=== PATIENT | female | born 1950 | race Caucasian/White ===

== ENCOUNTER 2016-10-12 13:14 | Outpatient (CLI) | payer OTHER ==
--- NOTE | 2016-10-12 14:38 | DIAGNOSTIC IMAGING REPORT ---
PROCEDURE: CT THORAX ABD PELVIS W/CONT INDICATION: COLON CA TECHNIQUE: 100 ml of Isovue 300 injected intravenously and axial images were obtained of the entire thorax, abdomen, and pelvis with sagittal and coronal reformations. COMPARISON: None. FINDINGS: THORAX: 4 mm right upper lobe (image 10), 3 mm right middle lobe (image 29), 4 mm left upper lobe nodule (image 7), 2 mm left upper lobe nodule (image 8), 3 mm left upper lobe nodule (image 27) and 3 mm left lower lobe nodules (image 34). Normal airways. No adenopathy or effusion. Minor atherosclerosis of the aorta and the coronaries. Heart size is normal. Right-sided Port-A-Cath in place. No suspicious osseous lesions.. ABDOMEN: 6.4 x 5.1 cm inhomogeneous left hepatic lobe and 4.5 x 3.9 cm inferior right hepatic lobe masses demonstrating some calcifications. There are three additional subcentimeter liver masses which are indeterminate. The gallbladder, pancreas, spleen, adrenal glands and kidneys are unremarkable. There is a 2 cm periumbilical hernia containing a loop of small bowel without incarceration or obstruction. PELVIS: There is no pelvic mass, inflammatory changes or free fluid. There is mild circumferential urinary bladder wall thickening. Normal appendix. IMPRESSION: 1. Several small pulmonary nodules and 2 large hepatic masses, most consistent with metastases 2. Right-sided Port-A-Cath 3. 2 cm periumbilical hernia containing a loop of small bowel without obstruction or incarceration 4. Urinary bladder wall thickening which may be due to decompression versus cystitis. Correlate clinically. All CT scans at this facility use dose modulation, iterative reconstruction, and/or weight-based dosing when appropriate to reduce radiation dose to as low as reasonably achievable.
== END 2016-10-12 23:00 ==
LOC: CT SRH 13:14
DX: C18.9 Malignant neoplasm of colon, unspecified (principal); R91.1 Solitary pulmonary nodule; R16.0 Hepatomegaly, not elsewhere classified; K42.9 Umbilical hernia without obstruction or gangrene; N32.9 Bladder disorder, unspecified

== ENCOUNTER 2017-01-10 08:49 | Outpatient (CLI) | payer OTHER ==
--- NOTE | 2017-01-10 11:01 | DIAGNOSTIC IMAGING REPORT ---
PROCEDURE: CT THORAX ABD PELVIS W/CONT INDICATION: COLON CA,COMPARE TO PRIOR TECHNIQUE: 90 ml of Isovue 300 injected intravenously and axial images were obtained of the entire thorax, abdomen, and pelvis with sagittal and coronal reformations. COMPARISON: CT chest/abdomen/pelvis 10/12/2016. FINDINGS: THORAX: Progression of 2 mm right lower lobe (image 23), 6 mm left upper lobe (image 11), 3 mm left upper lobe (image 26) and 4 mm left lower lobe (image 39) nodules. No change in the remaining small bilateral pulmonary nodules. Normal airways. No adenopathy or effusion. Minor atherosclerosis of the aorta. Normal heart size. No pericardial effusion. Right-sided Port-A-Cath in stable position. No suspicious osseous lesions. ABDOMEN: There is a 6.9 x 4.8 x 5.1 cm heterogeneous left hepatic lobe mass (previously 6.6 x 4.1 x 5.2 cm). There is a 3.9 x 4.0 x 3.3 cm low-density mass in the right hepatic lobe (previously 4.3 x 4.4 x 3.4 cm) with dystrophic calcifications. There are several stable small subcentimeter hypoenhancing masses which are indeterminate . The gallbladder, pancreas, spleen, adrenal glands and kidneys are normal. Minor atherosclerosis of the aorta. Nonspecific bowel gas pattern. No suspicious osseous lesions. PELVIS: Normal appendix. Uterus, adnexa and bladder are unremarkable. Calcified lymph nodes around the aortic bifurcation. 2 cm periumbilical hernia containing a loop of small bowel without incarceration. No suspicious osseous lesions. IMPRESSION: 1. Slight progression of some of the bilateral pulmonary nodules with slight progression of the left hepatic lobe heterogeneous mass consistent with metastases 2. Slight improvement of the inferior right hepatic lobe out metastasis 3. Stable right sided Port-A-Cath 4. Stable 2 cm periumbilical hernia containing a loop of small bowel without obstruction All CT scans at this facility use dose modulation, iterative reconstruction, and/or weight-based dosing when appropriate to reduce radiation dose to as low as reasonably achievable.
== END 2017-01-10 23:00 ==
LOC: CT SRH 08:49
DX: C18.9 Malignant neoplasm of colon, unspecified (principal); R91.1 Solitary pulmonary nodule; K42.9 Umbilical hernia without obstruction or gangrene

== ENCOUNTER 2017-02-01 10:02 | Outpatient (CLI) | payer OTHER ==
--- NOTE | 2017-02-01 16:17 | DIAGNOSTIC IMAGING REPORT ---
PROCEDURE: CT LIVER BIOPSY INDICATION: Colon carcinoma. Liver lesions. TECHNIQUE: Informed consent was obtained and the patient was advised of the usual risks and complications including infection, bleeding and allergy. COMPARISON: Comparison made to CT thorax on 01/10/2017 FINDINGS: Supine position. Following sterile preparation and 1% lidocaine local anesthetic, CT guidance was utilized to place a 19 gauge coaxial needle into the right lateral lower abdomen and directed into a 3.5 cm mass in the lateral right lobe of the liver. Eight core biopsy samples were obtained with a 20 gauge biopsy instrument. Samples were placed in formalin and transferred to the laboratory for diagnostic pathology and next generation sequencing (per Dr. Ramirez). The patient tolerated the procedure reasonably well, but did complain of mild right lateral abdominal pain. She received 2 tablets of Tylenol for pain control. Shortly thereafter, the patient became nauseated, and vomited. Because of this, it was elected to observe the patient for an extended period of time in the department (2.5 hours). The patient continued to do well, and pain/nausea resolved spontaneously. The patient was discharged home to the care of her daughter and granddaughter in satisfactory condition, with instructions to call me for any untoward symptoms. IMPRESSION: 1. Successful CT guided biopsy of the right liver mass. All CT scans at this facility use dose modulation, iterative reconstruction, and/or weight-based dosing when appropriate to reduce radiation dose to as low as reasonably achievable.
== END 2017-02-01 23:00 ==
LOC: CT SRH 10:02 → LAB SRH 10:02 → CT SRH 11:30
PROC: 0FB13ZX Excision of Right Lobe Liver, Percutaneous Approach, Diagnostic (ICD-10-PCS; principal; 2017-02-01)
DX: C18.9 Malignant neoplasm of colon, unspecified (principal)
CPT/HCPCS: 82445; 82584; 90074; 94060